=== PATIENT | female | born 1995 | race Caucasian/White ===

== ENCOUNTER 2017-08-08 18:23 | Emergency (ER) | payer BC, MEDICAID ==
[2017-08-08 18:23] VITALS: BMI 24.7
--- NOTE | 2017-08-08 20:24 | C.PDOC ---
History Of Present Illness Pt states she took three 5mg Ambien pills this afternoon to go to sleep. She denies self harm. Mother states that pt takes her Ambien often. Mother called 911 because pt usually does not take the Ambien this early and she states that she had an argument with someone at work today. Time Seen by Provider: 08/08/17 18:48 Chief Complaint (Nursing): Substance Abuse History Per: Patient, Family (Mother) Onset/Duration Of Symptoms: Hrs Current Symptoms Are (Timing): Better Ingestion Of Substance: Ambien Severity: Moderate Associated Symptoms: denies: Suicidal Thoughts, Suicidal Plan Additional History Per: Prior Records Past Medical History Reviewed: Historical Data, Nursing Documentation, Vital Signs Vital Signs: Last Vital Signs Temp 99.1 F 08/08/17 18:26 Pulse 92 H 08/08/17 18:26 Resp 20 08/08/17 18:26 BP 127/84 08/08/17 18:26 Pulse Ox 98 08/08/17 18:26 - Medical History PMH: No Chronic Diseases Family History: States: Unknown Family Hx - Social History Hx Alcohol Use: No Hx Substance Use: No - Immunization History Hx Tetanus Toxoid Vaccination: No Hx Influenza Vaccination: No Hx Pneumococcal Vaccination: No Review Of Systems Except As Marked, All Systems Reviewed And Found Negative. Constitutional: Negative for: Fever, Weakness Cardiovascular: Negative for: Chest Pain Respiratory: Negative for: Shortness of Breath Gastrointestinal: Negative for: Vomiting, Abdominal Pain Musculoskeletal: Negative for: Neck Pain Neurological: Negative for: Weakness, Numbness, Seizures, Altered Mental Status Physical Exam - Physical Exam Appears: Non-toxic, No Acute Distress Skin: Normal Color, Warm, Dry Head: Atraumatic, Normacephalic Eye(s): bilateral: PERRL, EOMI Neck: Normal ROM, Supple Cardiovascular: Rhythm Regular Respiratory: Normal Breath Sounds, No Accessory Muscle Use Gastrointestinal/Abdominal: Soft, No Tenderness Extremity: Normal ROM Neurological/Psych: Oriented x3, Normal Speech, Normal Cognition, Normal Motor, Normal Sensation Gait: Steady ED Course And Treatment O2 Sat by Pulse Oximetry: 98 Pulse Ox Interpretation: Normal Progress Note: Pt was seen by the tangled yarn worker Elmer who referred pt to [facility]. Disposition Counseled Patient/Family Regarding: Diagnosis, Need For Followup - Disposition Disposition: HOME/ ROUTINE Disposition Time: 20:25 Condition: STABLE Additional Instructions: Follow up with outpatient mental health as instructed by the tangled yarn worker. Return to the ER if you develop suicidal or homicidal thoughts, worsening of symptoms or if you have any other concerns. Instructions: Prescription Drug Abuse (DC) - Clinical Impression Clinical Impression: Ambien use disorder, mild, abuse, Adjustment disorder
[2017-08-08 20:37] VITALS: BP 119/76; PULSE 65; RESP 18; TEMP 98.7; O2SAT 99
== END 2017-08-08 20:37 | disposition home or self-care (01) ==
LOC: C.ER 18:23
DX: F13.10 Sedative, hypnotic or anxiolytic abuse, uncomplicated (principal); F43.20 Adjustment disorder, unspecified

== ENCOUNTER 2017-10-07 13:58 | Emergency (ER) | payer BC ==
[2017-10-07 13:58] VITALS: BMI 24.7
[2017-10-07 14:13] VITALS: BP 114/72; PULSE 72; TEMP 72; O2SAT 98
[2017-10-07] MEDS ORDERED: Lidocaine 2% Inj (20ml) INFIL ONE (14:29)
--- NOTE | 2017-10-07 14:48 | C.PDOC ---
History Of Present Illness 21 year old female patient with hx of bartholin's gland cyst presents to the ER with c/o swelling to the right side of vaginal area for the past 5 days. Patient reports she had a Bathrolin's gland cyst in July and received ibuprofen for it; no incision and drainage was needed. Patient denies fever, chills, nausea, vomiting, diarrhea, and abdominal pain. Time Seen by Provider: 10/07/17 14:19 Chief Complaint (Nursing): Abnormal Skin Integrity History Per: Patient History/Exam Limitations: no limitations Onset/Duration Of Symptoms: Days (x5) Current Symptoms Are (Timing): Still Present Location Of Injury: Right: Labia Quality Of Symptoms: Swollen Past Medical History Reviewed: Historical Data, Nursing Documentation, Vital Signs Vital Signs: Last Vital Signs Temp 72 F L 10/07/17 14:11 Pulse 72 10/07/17 14:11 Resp 18 10/07/17 14:55 BP 114/72 10/07/17 14:11 Pulse Ox 98 10/07/17 14:49 Family History: States: Unknown Family Hx - Social History Hx Alcohol Use: No Hx Substance Use: No - Immunization History Hx Tetanus Toxoid Vaccination: No Hx Influenza Vaccination: No Hx Pneumococcal Vaccination: No Review Of Systems Except As Marked, All Systems Reviewed And Found Negative. Constitutional: Negative for: Fever, Chills Gastrointestinal: Negative for: Nausea, Vomiting, Abdominal Pain, Diarrhea Genitourinary: Positive for: Other (swelling of the right side vaginal area) Physical Exam - Physical Exam Appears: Non-toxic, No Acute Distress Skin: Normal Color, Warm, Dry Head: Normacephalic Pelvic: Vaginal Discharge (white), Other (significant swelling with fluctuant to the right labia majora ) Neurological/Psych: Oriented x3, Normal Speech Gait: Steady ED Course And Treatment O2 Sat by Pulse Oximetry: 98 (RA) Pulse Ox Interpretation: Normal - Incision & Drainage Of Abscess Anesthesia: Lidocaine 2% (5 ml ) Prep Used: Betadine Procedure: Incised W/Scalpel Blade#: (5 cm incision with #11 blade) Medical Decision Making Medical Decision Making: Impression: Swelling of right side vaginal area Plan: -- I&D procedure was done on patient's labia majora. 5 ml of Lidocaine 2% was used to numb the are and betadine was used to cleanse the area. Incision (cm): 5; Blade # 11 Reassess: Patient is resting comfortably. Patient is instructed to f/u with OBGYN in 1-2 days. Disposition Counseled Patient/Family Regarding: Diagnosis, Need For Followup - Disposition Referrals: [facility] [Outside] Disposition: HOME/ ROUTINE Disposition Time: 14:48 Condition: STABLE Instructions: Bartholin's Gland Cyst Forms: [employer] (Sierra Leonean) - POA Present On Arrival: None - Clinical Impression Clinical Impression: Bartholin gland cyst - Scribe Statement The provider has reviewed the documentation as recorded by the Cinthya Pérez Do Provider Attestation: All medical record entries made by the Scribe were at my direction and personally dictated by me. I have reviewed the chart and agree that the record accurately reflects my personal performance of the history, physical exam, medical decision making, and the department course for this patient. I have also personally directed, reviewed, and agree with the discharge instructions and disposition.
[2017-10-07 14:55] VITALS: RESP 18
== END 2017-10-07 14:55 | disposition home or self-care (01) ==
LOC: C.ER 13:58
DX: N75.0 Cyst of Bartholin's gland (principal)

== ENCOUNTER 2017-10-15 19:56 | Emergency (ER) | payer BC ==
[2017-10-15 19:56] VITALS: BMI 24.7
[2017-10-15 20:07] VITALS: BP 119/64; PULSE 60; RESP 20; TEMP 98.4; O2SAT 100
[2017-10-15 20:23] LABS: SQUAMOUS EPITHIAL 7 /hpf (0-5); URINE BACTERIA RARE (<OCC); URINE BILIRUBIN NEGATIVE (NEGATIVE); URINE BLOOD NEGATIVE (NEGATIVE); URINE CLARITY Hazy (Clear); URINE COLOR Yellow (YELLOW); URINE GLUCOSE (UA) NORMAL (Normal); URINE PROTEIN 1+ mg/dL (NEGATIVE)
[2017-10-15 20:24] LABS: URINE LEUKOCYTE ESTERASE TRACE Leu/uL (Negative)
--- NOTE | 2017-10-15 20:33 | C.PDOC ---
History Of Present Illness 21 y/o female c/o urinary frequency and urgency x 3-4 days with small amts of urine. no fever or chills, no nausea, vomiting, abdominal pain. denies vaginal bleeding and vaginal discharge. Time Seen by Provider: 10/15/17 20:10 Chief Complaint (Nursing): Female Genitourinary History Per: Patient History/Exam Limitations: no limitations Onset/Duration Of Symptoms: Days (4) Current Symptoms Are (Timing): Still Present Severity: Mild Associated Symptoms: Urinary Symptoms. denies: Fever, Chills, Nausea, Vomiting , Back Pain Abnormal Vaginal Bleeding: No Last Menstral Period: September 19 Past Medical History Reviewed: Historical Data, Nursing Documentation, Vital Signs Vital Signs: Last Vital Signs Temp 98.4 F 10/15/17 20:04 Pulse 60 10/15/17 20:04 Resp 20 10/15/17 20:04 BP 119/64 10/15/17 20:04 Pulse Ox 100 10/15/17 20:54 - Medical History PMH: No Chronic Diseases Family History: States: Unknown Family Hx - Social History Hx Alcohol Use: No Hx Substance Use: No - Immunization History Hx Tetanus Toxoid Vaccination: No Hx Influenza Vaccination: No Hx Pneumococcal Vaccination: No Review Of Systems Constitutional: Negative for: Fever, Chills Cardiovascular: Negative for: Chest Pain Respiratory: Negative for: Cough Gastrointestinal: Negative for: Nausea, Vomiting, Abdominal Pain Genitourinary: Positive for: Frequency. Negative for: Dysuria, Hematuria, Vaginal Discharge, Vaginal Bleeding Physical Exam - Physical Exam Appears: Non-toxic, No Acute Distress Skin: Warm, Dry Head: Atraumatic, Normacephalic Neck: Supple Cardiovascular: Rhythm Regular, No Murmur Respiratory: No Decreased Breath Sounds, No Wheezing Gastrointestinal/Abdominal: Bowel Sounds, Soft, No Tenderness, No Distention, No Guarding, No Rebound Back: No CVA Tenderness Neurological/Psych: Oriented x3, Normal Speech, Normal Cognition ED Course And Treatment O2 Sat by Pulse Oximetry: 100 Medical Decision Making Medical Decision Making: pt with urinary urgency, no dysuria. ua with trace le, 5 wbc and squamous epi cells. will not treat for uti, but follow up culture. Disposition Counseled Patient/Family Regarding: Studies Performed, Diagnosis, Need For Followup - Disposition Referrals: [facility] [Outside] [facility] [Outside] Disposition: HOME/ ROUTINE Disposition Time: 20:52 Condition: GOOD Additional Instructions: Please drink more water daily. If your urine culture comes back positive for infection, we will notify you and prescribe an antibiotic. Recommend protected sex and sales service professional follow up. Return to ER for fever, back pain, vomiting or any other concerning symptoms. . Forms: [facility] (Tajik), General Discharge Instructions - Clinical Impression Clinical Impression: Urinary urgency
== END 2017-10-15 20:59 | disposition home or self-care (01) ==
LOC: C.ER 19:56
DX: R35.0 Frequency of micturition (principal)

== ENCOUNTER 2017-12-09 08:10 | Emergency (ER) | payer BC ==
[2017-12-09 08:10] VITALS: BMI 24.7
[2017-12-09 08:18] VITALS: O2SAT 100
[2017-12-09 08:59] LABS: SQUAMOUS EPITHIAL 9 /hpf (0-5); URINE BILIRUBIN NEGATIVE (NEGATIVE); URINE BLOOD 3+ (NEGATIVE); URINE CLARITY Hazy (Clear); URINE COLOR Yellow (YELLOW); URINE GLUCOSE (UA) NORMAL (Normal); URINE LEUKOCYTE ESTERASE 3+ Leu/uL (Negative); URINE PROTEIN NEGATIVE (NEGATIVE); URINE UROBILINOGEN NORMAL mg/dL (0.2-1.0)
[2017-12-09 09:04] LABS: HCG,QUALITATIVE URINE NEGATIVE (NEGATIVE)
[2017-12-09 10:01] VITALS: BP 114/72; PULSE 60; RESP 16; TEMP 97.6
[2017-12-09] MEDS ORDERED: cefTRIAXone (Rocephin) 250 mg Inj IM STA (10:44)
--- NOTE | 2017-12-09 10:47 | C.PDOC ---
History Of Present Illness 22 year old female presents to ED for evaluation of lower abdominal and pelvic pain. Pt states she is unsure if she is having vaginal spotting or if there is blood in her urine. She is concerned for possible STD. Denies n/v/d, constipation, back pain, or fever. Time Seen by Provider: 12/09/17 08:18 Chief Complaint (Nursing): Abdominal Pain History Per: Patient History/Exam Limitations: no limitations Onset/Duration Of Symptoms: Days Current Symptoms Are (Timing): Still Present Location Of Pain/Discomfort: Suprapubic Radiation Of Pain To:: None Quality Of Discomfort: "Pain" Associated Symptoms: denies: Loss Of Appetite, Back Pain, Chest Pain Exacerbating Factors: None Alleviating Factors: None Recent travel outside of the [place]: No Additional History Per: Patient Past Medical History Reviewed: Historical Data, Nursing Documentation, Vital Signs Vital Signs: Last Vital Signs Temp 97.6 F 12/09/17 10:00 Pulse 60 12/09/17 10:00 Resp 16 12/09/17 10:00 BP 114/72 12/09/17 10:00 Pulse Ox 100 12/09/17 10:00 Family History: States: Unknown Family Hx - Social History Hx Alcohol Use: No Hx Substance Use: No - Immunization History Hx Tetanus Toxoid Vaccination: No Hx Influenza Vaccination: No Hx Pneumococcal Vaccination: No Review Of Systems Except As Marked, All Systems Reviewed And Found Negative. Constitutional: Negative for: Fever, Chills Gastrointestinal: Positive for: Abdominal Pain. Negative for: Nausea, Vomiting, Diarrhea, Constipation Genitourinary: Positive for: Pelvic Pain. Negative for: Dysuria, Frequency Musculoskeletal: Negative for: Back Pain Physical Exam - Physical Exam Appears: Non-toxic, No Acute Distress Skin: Normal Color, Warm, Dry Head: Atraumatic, Normacephalic Eye(s): bilateral: Normal Inspection Oral Mucosa: Moist Neck: Normal ROM, Supple Cardiovascular: Rhythm Regular, No Murmur Respiratory: Normal Breath Sounds, No Rales, No Rhonchi, No Wheezing Gastrointestinal/Abdominal: Soft, Tenderness (mild suprapubic), No Guarding, No Rebound Back: No CVA Tenderness Pelvic: Vaginal Discharge (yellow discharge), No Cervical Motion Tenderness, Other (cervicitis) Extremity: Normal ROM Neurological/Psych: Oriented x3, Normal Speech ED Course And Treatment O2 Sat by Pulse Oximetry: 100 (RA) Pulse Ox Interpretation: Normal Medical Decision Making Medical Decision Making: Plan: Urinalysis Chlamydia/GC Zithromax Rocephin Urinalysis is consistent with UTI. Patient is being discharged home with instructions to follow up with PMD and OBGYN in 1-2 days. Disposition - Disposition Disposition: HOME/ ROUTINE Disposition Time: 10:47 Condition: STABLE Additional Instructions: Follow up with PMD and OBGYN within 1-2 days. Return to ED if feel worse. Prescriptions: Metronidazole [Flagyl] 500 mg PO BID #14 tablet Nitrofurantoin Macrocrystals [Macrobid] 1 cap PO BID #14 cap Instructions: Urinary Tract Infection, Adult (DC), Vaginitis Forms: [facility] [employer] [facility] (Malagasy), Work Excuse - Clinical Impression Clinical Impression: Vaginitis, UTI (urinary tract infection) - PA / DIRECTOR OF SUSTAINABLE DESIGN / Resident Statement MD/DO has reviewed & agrees with the documentation as recorded. - Scribe Statement The provider has reviewed the documentation as recorded by the Scribe KP All medical record entries made by the Scribe were at my direction and personally dictated by me. I have reviewed the chart and agree that the record accurately reflects my personal performance of the history, physical exam, medical decision making, and the department course for this patient. I have also personally directed, reviewed, and agree with the discharge instructions and disposition.
== END 2017-12-09 11:29 | disposition home or self-care (01) ==
LOC: C.ER 08:10
DX: N39.0 Urinary tract infection, site not specified (principal); N76.0 Acute vaginitis
CPT/HCPCS: 81001; 84703; 87086; 87491; 87591; 96372; 99284; J0696